=== PATIENT | female | born 1975 | race Caucasian/White ===

== ENCOUNTER 2019-02-20 00:20 | Emergency (ER) | payer SELFPAY ==
[~2019-02-20] VITALS: Ht 152.4 cm; Wt 46.3 kg
--- NOTE | 2019-02-20 00:46 | NUR ---
PT TAKEN TO BED 04 BY WHEELCHAIR
[2019-02-20 00:50] VITALS: BP 131/83
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
[2019-02-20] MEDS ORDERED: HYDROcodone/APAP 5/325 MG 1 TAB TAB PO ONE (01:05)
[2019-02-20] MEDS ORDERED: CYCLOBENZAPRINE 10 MG TAB PO ONE (01:05)
--- NOTE | 2019-02-20 01:10 | NUR ---
PT AMBULATED TO RESTROOM
--- NOTE | 2019-02-20 01:58 | NUR ---
PT C/O ABOUT HEADACHE. PAIN LEVEL 10/10. ERMD MADE AWARE.
--- NOTE | 2019-02-20 02:41 | NUR ---
ERMD ORDERED CT SCAN. EXPLAINED TO PT THE INDICATION FOR TEST. PT ELOPED, DESPITE EDUCATION GIVEN.
--- NOTE | 2019-02-20 02:42 | NUR ---
EPATIERG ELOPED FROM FACILITY. DISCHARGE INSTRUCTIONS NOT GIVEN TO PATIENT. DR. LARRY WAS NOTIFIED.
--- NOTE | 2019-02-20 02:48 | NUR ---
PT RETURNED TO FACILITY. ERMD MADE AWARE. PT RETURNED TO BED 04.
--- NOTE | 2019-02-20 03:40 | NUR ---
PT C/O ABOUT HEADACHE. PAIN LEVEL 10/10. ERMD MADE AWARE.
[2019-02-20] MEDS ORDERED: MORPHINE SULFATE 4 MG/ML SYR IM ONE (03:55)
--- NOTE | 2019-02-20 04:10 | NUR ---
PT RESTING IN BED COMFORTABLY WITH EYES CLOSED, EASILY ARROUSABLE. VSS. WILL CONTINUE TO MONITOR.
--- NOTE | 2019-02-20 05:05 | NUR ---
BLS ARRIVED. PT TO BE TRANSFERED TO [place] FOR CT.
--- NOTE | 2019-02-20 06:55 | NUR ---
PT RETURNED FROM [facility]IA [facility] AT THIS TIME
--- NOTE | 2019-02-20 07:10 | NUR ---
TRANSFER OF CARE AND REPORT GIVEN TO JONATHAN LU
--- NOTE | 2019-02-20 07:12 | NUR ---
REPORT RECEIVED FROM JONATHAN RECIO
[2019-02-20 08:28] VITALS: BP 106/59
--- NOTE | 2019-02-20 08:29 | NUR ---
Patient discharged with v/s stable. Written and verbal after care instructions given and explained. Patient alert, oriented and verbalized understanding of instructions. Ambulatory with steady gait. All questions addressed prior to discharge. ID band removed. Patient advised to follow up with PMD. Rx of FLEXERIL given. Patient educated on indication of medication including possible reaction and side effects. Opportunity to ask questions provided and answered.
== END 2019-02-20 08:29 | disposition home or self-care (01) ==
LOC: MED 00:20
DX: S39.012A Strain of muscle, fascia and tendon of lower back, initial encounter (principal); S29.012A Strain of muscle and tendon of back wall of thorax, initial encounter; R51 Headache; Z88.6 Allergy status to analgesic agent; Z88.5 Allergy status to narcotic agent; Z88.2 Allergy status to sulfonamides; Z88.8 Allergy status to other drugs, medicaments and biological substances; V89.2XXA Person injured in unspecified motor-vehicle accident, traffic, initial encounter; Y93.89 Activity, other specified; Y92.89 Other specified places as the place of occurrence of the external cause; Y99.8 Other external cause status
CPT/HCPCS: 72040; 72110; 81025; 96372; 99283; J2270